=== PATIENT | male | born 1955 | race Two or more races ===

== ENCOUNTER 2022-09-12 10:25 | Day surgery (SDC) | payer OTHER ==
[~2022-09-12] VITALS: Ht 185.4 cm; Wt 120.2 kg
[~2022-09-12 10:25] MED LIST: CHILDREN'S ASPI81 MG PO; COZAAR25 MG PO; METFORMIN HCL500 M3 PO
== END 2022-09-12 16:40 | disposition home or self-care (01) ==
LOC: CIR.AMB 10:25
PROVIDERS: ATTEND Orthopaedic Surgery
DX: S46.321A Laceration of muscle, fascia and tendon of triceps, right arm, initial encounter (principal); M70.21 Olecranon bursitis, right elbow; M77.8 Other enthesopathies, not elsewhere classified; G56.21 Lesion of ulnar nerve, right upper limb; I10 Essential (primary) hypertension; Z20.822 Contact with and (suspected) exposure to COVID-19